=== PATIENT | female | born 1995 | race Caucasian/White ===

== ENCOUNTER 2018-07-11 14:47 | Outpatient (CLI) | payer SELFPAY ==
[2018-07-11 15:23] LABS: HCT 32.9 % (36.0-46.0); HGB 10.9 g/dL (12.0-15.5); Mean Corp. HGB Concentration 33.1 g/dL (32.0-36.0); Mean Corpuscular Hemoglobin 30.6 pg (27.0-33.0); Mean Corpuscular Volume 92.4 fL (80-95); Mean Platelet Volume 10.1 fL (8.0-11.0); Platelet Count 240 x1000/uL (130-400); RBC 3.56 m/cumm (4.00-5.20); RBC Distribution Width 14.4 % (11.7-14.6); White Blood Cell Count 10.71 k/cumm (4.4-10.8)
[2018-07-11 21:30] LABS: Glucose,1 Hr (Glucola) 116 mg/dL (80-140)
== END 2018-07-11 15:07 ==
PROVIDERS: Visit Provider Obstetrics & Gynecology
DX: Z34.92 Encounter for supervision of normal pregnancy, unspecified, second trimester (principal)
CPT/HCPCS: 36415; 82950; 85027

== ENCOUNTER 2018-09-21 15:16 | Observation (INO) | payer MEDICAID, SELFPAY ==
[2018-09-21 15:12] VITALS: BP 136/71; PULSE 79; RESP 16; TEMP 36.6; O2SAT 99
--- NOTE | 2018-09-21 15:27 | W.ED.GENAD ---
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 She denies any pelvic pain or abdominal pain. She denies any other complaints. Medical excreting exam was performed in the ER. There is no evidence of , no evidence of pain, no evidence of active bleeding vaginally or discharge. Dr. Leonardo was immediately contacted and the case was discussed with her. She recommended that we forego a complete vaginal exam in in an effort to conserve time, and protect the patient and baby to get them immediately upstairs for further OB evaluation. Think this is reasonable. The patient's vital signs are stable at this time. Patient will be immediately transferred to the OB [facility] for further obstetrics evaluation. I have extensively reviewed the treatment plan with the patient. I have addressed all patient concerns at this time. I have also discussed the plan with the admitting physician and they agree with the current assessment and plan and have agreed to assume responsibility for the patient. All parties demonstrate verbal understanding and agreement with our assessment and plan at this time. HPI General Date/Time Provider Initiated Documentation: 09/21/18 15:21. HPI Narrative: This is a 23-year-old female who is a at 38 weeks who is scheduled to have a tomorrow secondary to her being Rh- and her baby being Rh+, amongst other reasons. She has known locally to the OB department, however his is scheduled at [facility]. Patient states that last night after she was having intercourse when she went to urinate she noticed a large amount of fluid come out. Since then she has had a notable amount of suprapubic pressure that has been continuous. She denies any fever, chills, abdominal pain, or pelvic pain. She denies any other complaints at this time. She denies any other modifying factors. She states that this does not feel like her previous episodes of labor. Patient denies any other complaints at this time. 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 3.ENT: Atraumatic external nose and ears. Moist MM. Neck: Symmetric, trachea midline, No thyromegaly. 4.CVS: +S1/S2, No murmurs or gallops. Peripheral pulses 2+ and equal in all extremities. Brisk capillary refill in all extremities. 5.RESP: Unlabored respiratory effort. Clear to auscultation bilaterally. No wheezes rales or rhonchi 6.GI: Soft, Nontender/Nondistended, appropriately gravid abdomen. No abdominal tenderness. 7.MSK: Normocephalic/Atraumatic, Extremities w/o deformity or ttp No cyanosis or clubbing, Normal movement of all extremities 8.Skin: Warm, Dry. No rashes or lesions. 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 Sensation grossly intact, no focal neurologic deficits. 10.Psych: (AAO) x3. Appropriate mood and affect Course Vital Signs Temperature 36.6 C 09/21/18 15:12 Pulse 79 09/21/18 15:12 Respiratory Rate 16 09/21/18 15:12 Blood Pressure 136/71 09/21/18 15:12 Pulse Oximetry 99 09/21/18 15:12 Temperature 36.6 C 09/21/18 15:12 Temperature Source Skin 09/21/18 15:12 Pulse 79 09/21/18 15:12 Respiratory Rate 16 09/21/18 15:12 Blood Pressure 136/71 09/21/18 15:12 Pulse Oximetry 99 09/21/18 15:12 Oxygen Delivery Method Room Air 09/21/18 15:12 Oxygen Flow Rate 0 09/21/18 15:12
--- NOTE | 2018-09-21 15:31 | ED.GENADUL_ITS ---
Discharge Plan Disposition Patient Disposition: 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 She denies any pelvic pain or abdominal pain. She denies any other complaints. Medical excreting exam was performed in the ER. There is no evidence of , no evidence of pain, no evidence of active bleeding vaginally or discharge. Dr. Leonardo was immediately contacted and the case was discussed with her. She recommended that we forego a complete vaginal exam in in an effort to conserve time, and protect the patient and baby to get them immediately upstairs for further OB evaluation. Think this is reasonable. The patient's vital signs are stable at this time. Patient will be immediately transferred to the OB [facility] for further obstetrics evaluation. I have extensively reviewed the treatment plan with the patient. I have addressed all patient concerns at this time. I have also discussed the plan with the admitting physician and they agree with the current assessment and plan and have agreed to assume responsibility for the patient. All parties demonstrate verbal understanding and agreement with our assessment and plan at this time. HPI General Date/Time Provider Initiated Documentation: 09/21/18 15:21 . HPI Narrative: This is a 23-year-old female who is a at 38 weeks who is scheduled to have a tomorrow secondary to her being Rh- and her baby being Rh+, amongst other reasons. She has known locally to the OB department, however his is scheduled at [facility]. Patient states that last night after she was having intercourse when she went to urinate she noticed a large amount of fluid come out. Since then she has had a notable amount of suprapubic pressure that has been continuous. She denies any fever, chills, abdominal pain, or pelvic pain. She denies any other complaints at this time. She denies any other modifying factors. She states that this does not feel like her previous episodes of labor. Patient denies any other complaints at this time. 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 3.ENT: Atraumatic external nose and ears. Moist MM. Neck: Symmetric, trachea midline, No thyromegaly. 4.CVS: +S1/S2, No murmurs or gallops. Peripheral pulses 2+ and equal in all extremities. Brisk capillary refill in all extremities. 5.RESP: Unlabored respiratory effort. Clear to auscultation bilaterally. No wheezes rales or rhonchi 6.GI: Soft, Nontender/Nondistended, appropriately gravid abdomen. No abdominal tenderness. 7.MSK: Normocephalic/Atraumatic, Extremities w/o deformity or ttp No cyanosis or clubbing, Normal movement of all extremities 8.Skin: Warm, Dry. No rashes or lesions. 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 Sensation grossly intact, no focal neurologic deficits. 10.Psych: (AAO) x3. Appropriate mood and affect Course Vital Signs Temperature 36.6 C 09/21/18 15:12 Pulse 79 09/21/18 15:12 Respiratory Rate 16 09/21/18 15:12 Blood Pressure 136/71 09/21/18 15:12 Pulse Oximetry 99 09/21/18 15:12 Temperature 36.6 C 09/21/18 15:12 Temperature Source Skin 09/21/18 15:12 Pulse 79 09/21/18 15:12 Respiratory Rate 16 09/21/18 15:12 Blood Pressure 136/71 09/21/18 15:12 Pulse Oximetry 99 09/21/18 15:12 Oxygen Delivery Method Room Air 09/21/18 15:12 Oxygen Flow Rate 0 09/21/18 15:12
[2018-09-21 15:34] LABS: Abs Immature Grans 0.05 k/cumm (0.0-0.09); Absolute Eosinophil Count 0.05 k/cumm (0.0-0.7); Absolute Lymphocyte Count 2.48 k/cumm (1.2-3.4); Absolute Monocyte Count 0.85 k/cumm (0.11-0.7); Basophils % 0.2; Eosinophils % 0.4; HCT 34.7 % (36.0-46.0); HGB 11.5 g/dL (12.0-15.5); Immature Grans % 0.4; Lymphocytes % 18.6; Mean Corp. HGB Concentration 33.1 g/dL (32.0-36.0); Mean Corpuscular Hemoglobin 28.2 pg (27.0-33.0); Mean Platelet Volume 9.8 fL (8.0-11.0); Monocytes % 6.4; Platelet Count 307 x1000/uL (130-400); RBC 4.08 m/cumm (4.00-5.20); RBC Distribution Width 14.8 % (11.7-14.6); White Blood Cell Count 13.31 k/cumm (4.4-10.8)
[2018-09-21 15:37] LABS: Absolute Basophil Count 0.03 k/cumm (0.0-0.2); Absolute Neutrophil Count 9.85 k/cumm (1.2-6.7)
[2018-09-21 15:54] LABS: ALT 11 U/L (12-78); AST 11 U/L (15-37); Albumin 2.4 g/dL (3.4-5.0); Alkaline Phosphatase 207 U/L (46-116); Anion Gap 10.6 mmol/L (3-11); BUN 6 mg/dL (7-18); Bilirubin, Total 0.3 mg/dL (0.2-1.0); CO2 23.4 mmol/L (21.0-32.0); CREATININE 0.64 mg/dL (0.55-1.02); Calcium 8.6 mg/dL (8.5-10.1); Chloride 104 mmol/L (98-107); Glucose 74 mg/dL (70-100); Potassium 3.9 mmol/L (3.5-5.1); Sodium 138 mmol/L (136-145); Total Protein 6.7 g/dL (6.4-8.2)
== END 2018-09-21 18:03 | disposition home or self-care (01) | DRG 833 ==
LOC: ER 15:25 → OBS 15:34
PROVIDERS: Admitting Provider Obstetrics & Gynecology Gynecology; Emergency Provider Student in an Organized Health Care Education/Training Program; PCP Obstetrics & Gynecology; Visit Provider Obstetrics & Gynecology Gynecology
DX: O47.1 False labor at or after 37 completed weeks of gestation (principal); O34.211 Maternal care for low transverse scar from previous cesarean delivery; Z3A.37 37 weeks gestation of pregnancy
CPT/HCPCS: 36415; 80053; 86850; 86900; 86901; 99285; 85025; 86870; 86902; 99284; G0378

== ENCOUNTER 2019-04-30 06:54 | Emergency (ER) | payer OTHER, SELFPAY ==
[2019-04-30 06:59] VITALS: BP 104/41; PULSE 52; RESP 18; TEMP 36.7; O2SAT 99
--- NOTE | 2019-04-30 07:08 | W.ED.GENAD ---
Discharge Plan Disposition Patient Disposition: HOME Condition: Good Discharge Details Chief Complaint: Nk/Back Pain Clinical Impression: Back strain Primary Care Provider: Adela Kerr ED Provider: Jose Beatty Home Meds and New Rx's Prescriptions: New cyclobenzaprine 10 mg tablet 10 mg PO TID Qty: 14 RF: 0 lidocaine [Lidoderm] 1 PATCH patch 1 patch Topical Q24H Qty: 4 RF: 0 Discharge Instructions Instructions: Low Back Strain (ED), Lower Back Exercises (ED) Additional Instructions: At this time you show signs and symptoms concerning for low back strain. Please do not lift anything heavier than 5 to 10 pounds. Please take 1000 mg of Tylenol every 6 hours and 800 mg of ibuprofen every 6 hours. Please use a heating pad as often as possible. Please take the Flexeril only as needed, and do not take them when you are driving, operating heavy machinery, or using firearms. Please use the Lidoderm patches as directed. If you notice any worsening of your symptoms, or any new symptoms such as vomiting, diarrhea, fever, chills, shortness of breath, chest pain, numbness, weakness, bowel or bladder incontinence, tingling in your groin, or fainting , please return immediately to the emergency department for reevaluation. Please follow up with your primary care provider as soon as possible for reassessment and reevaluation. As always, it was a pleasure participating in your medical care today. Stand Alone Forms: Work Release Referrals: Adela Kerr, TERMITE RENEWAL INSPECTOR [Primary Care Provider] - Discharge Data Discharge Date/Time-TO BE ENTERED AT DEPARTURE: 04/30/19 07:40 Medical Decision Making This is a pleasant 24-year-old female who presents today for evaluation of low back pain. She works in [employer] and turned slightly quickly causing some mild pain in her left lower back. Physical exam demonstrates notable reproducible left-sided paraspinal pain over L4-L5, no midline tenderness. No weakness, neurologic deficits, saddle anesthesia, or signs or symptoms concerning for cauda equina syndrome. With no recent falls or trauma and no midline tenderness C at this time no clinical emergent indication for imaging. This time we will recommend Lidoderm patch, NSAIDs, Flexeril and heating pad as needed. Patient will be given a work note. We discussed red flags for which to return. I have extensively reviewed the treatment plan and discharge instructions with the patient. I have addressed all patient concerns at this time. The patient was made aware of what symptoms to monitor for that would warrant a return to the emergency department. Discussed the plan with the patient, they demonstrate verbal understanding and agreement with our assessment and plan at this time. HPI General Date/Time Provider Initiated Documentation: 04/30/19 07:01. HPI Narrative: This is a pleasant 24-year-old female with no significant past medical history who presents today for evaluation of left lower back pain. 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 She denies any falls or trauma. Pain is only located there. She denies any numbness or tingling in her groin, or into her legs. She denies any weakness. She denies any bowel or bladder incontinence. She has no other complaints at this time. No other modifying factors. She denies any previous injury to the back. Related Data Home Medications Medication Instructions Recorded Confirmed cyclobenzaprine 10 mg PO TID #14 tab 04/30/19 lidocaine [Lidoderm] 1 patch TOPICAL Q24H #4 patch 04/30/19 Previous Rx's Medication Instructions Recorded cyclobenzaprine 10 mg PO TID #14 tab 04/30/19 lidocaine [Lidoderm] 1 patch TOPICAL Q24H #4 patch 04/30/19 Allergies Allergy/AdvReac Type Severity Reaction Status Date / Time No Known Allergies Allergy Unverified 04/30/19 07:06 General Stated Complaint: Nk/Back Pain CAMILLA: 3 Review of Systems Review of Systems All systems reviewed & are unremarkable except as noted in HPI and below [facility] Medical History (Updated 02/27/19 @ 11:02 by Inez SwipeGood) Abnormal antibody titer (Acute 04/05/18) Bipolar affect, depressed (Chronic) History of kidney stones (Acute) History of sterilization procedure (Resolved) Surgical History (Updated 02/27/19 @ 11:02 by Inez TastyKhanaeant) History of delivery (Inactive) History of cholecystectomy (Chronic) History of tonsillectomy (Chronic) Social History (Updated 02/27/19 @ 11:02 by Inez TastyKhanaashvinHearts For Art) Smoking/Tobacco Use Status: Current, status unknown Tobacco Type: cigarettes Alcohol Intake: never Drug use: Occasionally Substance use type: marijuana Do you feel safe at home: Yes Do you feel safe in your relationship?: Yes Female Reproductive History Menstrual control method: none History History 4 Para Hx # Term Pregnancies 2 Multiple births Hx # Pregnancies Ectopic pregnancies AB induced Hx Number of Living Children AB spontaneous Exam Narrative Exam Narrative: 1.Const: Well-nourished, Well-developed, appearing stated age 2.Eyes: PERRL, no conjunctival injection, and symmetrical lids. 3.ENT: Atraumatic external nose and ears. Moist MM. Neck: Symmetric, trachea midline, No thyromegaly. 4.CVS: +S1/S2, No murmurs or gallops. Peripheral pulses 2+ and equal in all extremities. Brisk capillary refill in all extremities. 5.RESP: Unlabored respiratory effort. Clear to auscultation bilaterally. No wheezes rales or rhonchi 6.GI: Soft, Nontender/Nondistended, No hepatosplenomegaly. No guarding or rebound. 7.MSK: Normocephalic/Atraumatic, Extremities w/o deformity or ttp No cyanosis or clubbing, Normal movement of all extremities no midline tenderness to palpation over the CTLS spine. Mild left paraspinal pain over L4 and L5. Normal ROM in flexion, extension, side bend, and rotation. Patient has +5 out of 5 strength in the lower extremities in dorsiflexion and plantarflexion, knee flexion and extension, hip flexion and extension. There is +2 over 2 dorsalis pedis pulses bilaterally. There is normal sensation to the skin with light touch at the foot, knee, and hip. Normal saddle sensation. Good sensation over the deep sural nerve area bilaterally. Rectal exam demonstrates good rectal tone and perirectal sensation. Reflexes are +2 over 4 in the patellar reflex bilaterally. +5 out of 5 strength in the medial, ulnar, radial nerve distribution bilaterally in the hands as well as intact light touch sensation to these dermatomes on the hands 8.Skin: Warm, Dry. No rashes or lesions. 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 Sensation grossly intact, no focal neurologic deficits. 10.Psych: (AAO) x3. Appropriate mood and affect Course Vital Signs Temperature 36.7 C 04/30/19 06:59 Pulse 52 L 04/30/19 06:59 Respiratory Rate 18 04/30/19 06:59 Blood Pressure 104/41 L 04/30/19 06:59 Pulse Oximetry 99 04/30/19 06:59 Temperature 36.7 C 04/30/19 06:59 Temperature Source Temporal Artery Scan 04/30/19 06:59 Pulse 52 L 04/30/19 06:59 Respiratory Rate 18 04/30/19 06:59 Blood Pressure 104/41 L 04/30/19 06:59 Blood Pressure Position Sitting 04/30/19 06:59 Pulse Oximetry 99 04/30/19 06:59 Oxygen Delivery Method Room Air 04/30/19 06:59 Oxygen Flow Rate 0 04/30/19 06:59
[2019-04-30 07:13] LABS: Bilirubin Negative (Negative); Blood Negative (Negative); Clarity Clear (Clear); Glucose Negative (Negative); Ketones Negative (Negative); Leukocyte Esterase Negative (Negative); Nitrite Negative (Negative); Specific Gravity 1.025 (1.005-1.025); Urobilinogen 0.2 EU/dL (Up TO 0.2)
[2019-04-30] MEDS: Dexamethasone 4 MG TAB 12 MG PO (07:25)
[2019-04-30] MEDS: Lidocaine 5% Patch 1 PATCH TP (07:27)
== END 2019-04-30 07:40 | disposition home or self-care (01) ==
LOC: ER 07:33
PROVIDERS: Emergency Provider Student in an Organized Health Care Education/Training Program; PCP Nurse Practitioner Adult Health
DX: S39.012A Strain of muscle, fascia and tendon of lower back, initial encounter (principal); X50.3XXA Overexertion from repetitive movements, initial encounter
CPT/HCPCS: 81025; 99283; 81003; J8540

== ENCOUNTER 2019-06-08 10:33 | Outpatient (REF) | payer MEDICAID, SELFPAY ==
[2019-06-08 13:11] LABS: HCT 41.4 % (36.0-46.0); HGB 13.9 g/dL (12.0-15.5); Mean Corp. HGB Concentration 33.6 g/dL (32.0-36.0); Mean Corpuscular Hemoglobin 30.5 pg (27.0-33.0); Mean Platelet Volume 10.7 fL (8.0-11.0); Platelet Count 279 x1000/uL (130-400); RBC 4.55 m/cumm (4.00-5.20); RBC Distribution Width 12.9 % (11.7-14.6); White Blood Cell Count 9.13 k/cumm (4.4-10.8)
[2019-06-08 13:26] LABS: ALT 21 U/L (14-59); AST 11 U/L (15-37); Albumin 3.6 g/dL (3.4-5.0); Alkaline Phosphatase 92 U/L (46-116); Anion Gap 9.3 mmol/L (3-11); BUN 15 mg/dL (7-18); Bilirubin, Total 0.3 mg/dL (0.2-1.0); CO2 23.7 mmol/L (21.0-32.0); CREATININE 0.73 mg/dL (0.55-1.02); Calcium 8.6 mg/dL (8.5-10.1); Chloride 106 mmol/L (98-107); Glucose 82 mg/dL (70-100); Potassium 4.2 mmol/L (3.5-5.1); Sodium 139 mmol/L (136-145); TSH (W/Ref FT4) 1.99 uIU/mL (0.36-3.74)
[2019-06-11 10:40] LABS: Hepatitis C Ab w Rflx HCV PCR Negative (NEGAT)
[2019-06-11 10:42] LABS: HIV-1/2 Ag & Ab Screen Negative (NEGAT)
== END 2019-06-08 10:53 ==
LOC: LBN 10:33
PROVIDERS: PCP Nurse Practitioner Adult Health; Visit Provider Nurse Practitioner Adult Health
DX: F31.30 Bipolar disorder, current episode depressed, mild or moderate severity, unspecified (principal); F41.9 Anxiety disorder, unspecified; R53.83 Other fatigue; Z11.4 Encounter for screening for human immunodeficiency virus [HIV]; Z11.59 Encounter for screening for other viral diseases; Z91.89 Other specified personal risk factors, not elsewhere classified
CPT/HCPCS: 80053; 85027; 86803; 87389; 84443

== ENCOUNTER 2019-07-23 09:13 | Emergency (ER) | payer MEDICAID, SELFPAY ==
[2019-07-23 09:24] VITALS: BP 110/82; PULSE 103; RESP 16; TEMP 36.6; O2SAT 99
--- NOTE | 2019-07-23 09:35 | ED.GENADUL_ITS ---
Discharge Plan Disposition Patient Disposition: HOME Condition: Stable Discharge Details Chief Complaint: Sorethroat Clinical Impression: Pharyngitis Primary Care Provider: Adela Kerr ED Provider: Yoli Zepeda Home Meds and New Rx's Prescriptions: No Action No Known Home Meds RF: 0 Discharge Instructions Instructions: Pharyngitis (ED) Additional Instructions: Please return immediately to the emergency room if you develop any new or worsening symptoms or if you become otherwise concerned. It is extremely important that you call as soon as possible to make an appointment to be seen in follow-up for this visit by your primary care doctor. Referrals: Adela Kerr, ART CONSERVATOR [Primary Care Provider] - Discharge Data Discharge Date/Time-TO BE ENTERED AT DEPARTURE: 07/23/19 10:12 Medical Decision Making Luisa roblesies a 24-year-old woman with a history of bipolar disorder who presented to the emergency department with sore throat since yesterday. On exam patient is well and nontoxic appearing. Posterior pharynx is erythematous without other abnormal interval finding. Exam/history is not consistent with retropharyngeal abscess/peritonsillar abscess, Amrcel's angina, meningitis, sepsis, impending airway compromise, acute emergent life-threatening intra- abdominal process, other acute emergent life-threatening process. Concern for viral versus bacterial pharyngitis. Rapid strep positive per nursing. Patient elects for IM antibiotics over p.o. Patient taking p.o. in the emergency department without issue. I had a lengthy discussion with the patient regarding return to emergency department precautions, home care, and importance of outpatient follow-up with her PCP. Patient was placed on care management list for outpatient follow PCP for her chronic abdominal pain and pharyngitis follow- up. Patient verbalized understanding of the plan and was amenable. All questions were answered. Patient was discharged home with clear plan for outpatient follow-up. Medical Records Medical records reviewed: Yes I reviewed the patient's medical records. Lab Data Lab results reviewed: Yes I reviewed the patient's lab results. HPI General Mode of arrival: ambulatory . Date/Time Provider Initiated Documentation: 07/23/19 09:34 . Limitations to Documentation: no limitations . Information obtained by: patient, RN notes reviewed and old records reviewed . HPI Narrative: Luisa Camp is a 24-year-old woman with a history of bipolar disorder presenting to the emergency department with sore throat. Patient reports that yesterday she developed a sore throat. She reports that she has had some mild cough and subjective fever last night. Patient reports that she is able to swallow but does have pain with swallowing. She has been eating and drinking somewhat less because of this. Upon review of systems, patient reports that she has had chronic intermittent lower abdominal pain for 4 or 5 years that has not been evaluated, severity, location, duration without recent change, chronic pain is at baseline and does not currently occurring. She denies any other pain, vomiting, diarrhea, shortness of breath, numbness, weakness, rash. Patient reports that she feels otherwise well. No other recent illness. No recent travel. Related Data Home Medications Medication Instructions Recorded Confirmed Unknown [No Known Home Meds] 07/23/19 07/23/19 Allergies Allergy/AdvReac Type Severity Reaction Status Date / Time No Known Allergies Allergy Verified 07/23/19 09:27 General Stated Complaint: Sorethroat CAMILLA: 4 Review of Systems Narrative: Constitutional: Reports subjective fevers Eyes: denies eye pain ENT: denies facial pain, dental pain, reports sore throat Cardiovascular: denies chest pain Respiratory: denies SOB, reports mild cough GI: denies vomiting, diarrhea, reports chronic abdominal pain as per HPI : denies flank pain MSK: denies back pain, neck pain, arthralgias, myalgias Skin: denies rash Neuro: denies headaches, numbness, weakness [facility] Medical History Abnormal antibody titer (Inactive 04/05/18) 03/2018 anti littleC antibody titer 64. Pt has serial MCA dopplers at [facility] [id number]. Is transfering care to [facility] for RC/S and BTL. Bipolar affect, depressed (Chronic) exacerbation PP. Referred to Darwin Coats LCSW for PP evaluation. History of intravenous drug abuse (Acute) History of kidney stones (Acute) History of methamphetamine abuse (Acute) Low back pain (Inactive) Nicotine dependence with current use (Chronic) Obesity (Chronic) Surgical History (Updated 06/07/19 @ 16:07 by Adela Kerr NP) History of delivery (Inactive) x3. Most recent at [facility] 10/2018. BTL at that time. History of cholecystectomy (Chronic) History of tonsillectomy (Chronic) History of tubal ligation (Chronic) Social History Smoking/Tobacco Use Status: Current every day Tobacco Type: cigarettes Smoking packs per day: 10 Smoking cigarettes per day: 200.0 Quit status: not considering quitting Alcohol Intake: never Drug use: Occasionally Substance use type: marijuana Details: has quit THC for job. Household members: other Details: aunt and uncle, fiance and 2 children Number of Children: 2 Education Level: other Details: did not graduate no GED current occupation: [employer] What type of physical activity do you participate in: other Details: Physical Therapy teice weekly Seatbelt use: always Do you feel safe at home: Yes Do you feel safe in your relationship?: Yes Female Reproductive History Menstrual control method: none History History 4 Para Hx # Term Pregnancies 2 Multiple births Hx # Pregnancies Ectopic pregnancies AB induced Hx Number of Living Children AB spontaneous Exam Narrative Exam Narrative: Constitutional: well and [id number], pleasant, conv ersing normally HENT: head atraumatic/normocephalic/normal inspection, mucous membranes moist, posterior pharynx erythematous, uvula midline, status post tonsillectomy, no exudates, no intraoral lesion or intraoral edema, normal voice, no drooling or pooling of secretions Eyes: conjunctiva normal, sclera normal, pupils 3mm b/l Neck: no stridor, full painless ROM, trachea midline, positive anterior cervical lymphadenopathy bilaterally Chest: normal inspection Resp: normal work of breathing, LCTAB Cardio: normal rate, normal rhythm, no murmur appreciated Skin: warm, dry, normal color, no rash Neuro: alert, not altered, grossly non-focal, normal tone Ext: no edema Psych: normal mood, normal affect, normal behavior Course Vital Signs Vital signs: Vital Signs Temperature 36.6 C 07/23/19 09:24 Pulse 103 H 07/23/19 09:24 Respiratory Rate 16 07/23/19 09:24 Blood Pressure 110/82 07/23/19 09:24 Pulse Oximetry 99 07/23/19 09:24 Temperature 36.6 C 07/23/19 09:24 Temperature Source Skin 07/23/19 09:24 Pulse 103 H 07/23/19 09:24 Respiratory Rate 16 07/23/19 09:24 Respiratory Effort Non-Labored 07/23/19 09:24 Blood Pressure 110/82 07/23/19 09:24 Blood Pressure Position Sitting 07/23/19 09:24 Pulse Oximetry 99 07/23/19 09:24 Oxygen Delivery Method Room Air 07/23/19 09:24 Oxygen Flow Rate 0 07/23/19 09:24 Pain Level 8 07/23/19 09:24 Lab/Test Results Lab/Test Results: POC Strep Test-JUAN CARLOS(Rapid) Start: 07/23/19 09:30 Freq: .Rapid Strep Test Status: Active Protocol: Document 07/23/19 09:30 MMQ (Rec: 07/23/19 09:30 MMQ [id number]) Strep test-JUAN CARLOS(Rapid)-POC POC-Strep test-JUAN CARLOS (Rapid) Positive POC-Strep test-JUAN CARLOS (Rapid) Positive
== END 2019-07-23 10:12 | disposition home or self-care (01) ==
PROVIDERS: Emergency Provider Student in an Organized Health Care Education/Training Program; PCP Nurse Practitioner Adult Health
DX: J02.0 Streptococcal pharyngitis (principal); F17.210 Nicotine dependence, cigarettes, uncomplicated
CPT/HCPCS: 87880; 96372; 99284; J0561

== ENCOUNTER 2020-06-04 02:47 | Outpatient (CLI) | payer MEDICAID, SELFPAY ==
[2020-06-04 12:42] LABS: Kit/Specimen SENT
[2020-06-04 12:52] LABS: Abs Immature Grans 0.04 10^3/uL (0.0-0.06); Absolute Basophil Count 0.02 10^3/uL (0.0-0.2); Absolute Eosinophil Count 0.12 10^3/uL (0.0-0.7); Absolute Lymphocyte Count 3.02 10^3/uL (1.2-3.4); Absolute Monocyte Count 0.71 10^3/uL (0.1-0.8); Absolute Neutrophil Count 5.66 10^3/uL (1.2-6.7); Basophils % 0.2; Eosinophils % 1.3; HCT 38.3 % (36.0-46.0); Immature Grans % 0.4; Lymphocytes % 31.6; MCHC 33.9 % (32.0-36.0); MCV 88.5 fL (80-95); MPV 10.1 fL (8.0-11.0); Monocytes % 7.4; Neutrophils % 59.1; Nucleated RBC 0 %; Platelet Count 288 10^3/uL (130-400); RBC 4.33 10^6/uL (3.93-5.22); RDW 13.6 % (11.7-14.6); RDW-SD 44.1 fL; WBC 9.57 10^3/uL (4.4-10.8)
[2020-06-04 13:00] LABS: Glucose,1 Hr (Glucola) 67 mg/dL (80-140)
[2020-06-04 13:27] LABS: TSH (W/Ref FT4) 1.58 uIU/mL (0.36-3.74)
[2020-06-04 14:58] LABS: *AMPHETAMINES SCREEN URINE Negative (Negative); *BARBITURATES SCREEN URINE Negative (Negative); *BENZODIAZEPINES SCREEN URINE Negative (Negative); Cannabinoids THC POSITIVE (Negative); Cocaine Screen,Urine Negative (Negative); METHADONE URINE SCREEN Negative (Negative); OPIATES URINE SCREEN Negative (Negative)
[2020-06-04 15:00] LABS: Tricyclic Antidepressants Negative (Negative)
[2020-06-05 11:29] LABS: Hepatitis B Surface Ag Negative (Negative)
[2020-06-05 12:05] LABS: HIV-1/2 Ag & Ab Screen Negative (Negative)
[2020-06-05 12:16] LABS: Hepatitis C Ab w Rflx HCV PCR Negative (Negative)
[2020-06-05 17:17] LABS: Rubella IgG Ab (UVM) Positive (See Note); Varicella IgG Antibody Positive (See Note)
[2020-06-06 14:11] LABS: Syphilis Total Ab w/Reflex Nonreactive (Nonreactive)
[2020-06-11 11:20] LABS: Buprenorphine Negative; Norbuprenorphine Negative
[2020-06-12 02:07] LABS: Result Summary NEGATIVE; Specimen WB Whole Blood
== END 2020-06-04 03:07 ==
PROVIDERS: PCP Nurse Practitioner Adult Health; Visit Provider Advanced Practice Midwife
DX: Z34.91 Encounter for supervision of normal pregnancy, unspecified, first trimester (principal); Z36.89 Encounter for other specified antenatal screening; Z11.4 Encounter for screening for human immunodeficiency virus [HIV]; Z11.59 Encounter for screening for other viral diseases; Z01.84 Encounter for antibody response examination
CPT/HCPCS: 36415; 80307; 82950; 86787; 86803; 86850; 86900; 86901; 87340; 87389; 81220; 84443; 85025; 86762; 86780; 86870; 87086

== ENCOUNTER 2020-07-04 15:59 | Outpatient (REF) | payer MEDICAID, SELFPAY ==
[2020-07-07 02:30] LABS: Patient Race White; SARS-CoV-2 RNA Undetected (Undetected); SARS-CoV-2 Specimen Source Nasal
== END 2020-07-04 16:19 ==
LOC: NCHCN 15:59
PROVIDERS: PCP Nurse Practitioner Adult Health; Visit Provider Nurse Practitioner Family
DX: Z11.59 Encounter for screening for other viral diseases (principal)
CPT/HCPCS: U0003

== ENCOUNTER 2020-08-08 16:56 | Outpatient (CLI) | payer MEDICAID, SELFPAY ==
[2020-08-08 17:30] VITALS: BP 106/60; PULSE 77; TEMP 36.9
[2020-08-08 17:44] VITALS: BP 106/60; PULSE 77
[2020-08-08 18:08] VITALS: BP 106/60; PULSE 77; TEMP 36.6
--- NOTE | 2020-08-19 17:52 | W.OBNST ---
Date of service: 08/19/20 Time of Service: 17:53 NST Evaluation Reason for NST Reasons for Nonstress Test: DECREASED MOVEMENT Gestational Age Gestational Age in Weeks and Days: 19 Weeks and 4Days Test and Monitor Explained Test/Monitor Explained: Test Explained, Monitor Explained and Patient Verbalized Understanding Vital Signs Blood Pressure: 106/60 Pulse: 77 Temperature: 97.9 F NST Information Date on Monitor: 08/08/20 Time on Monitor: 17:30 Date off Monitor: 08/08/20 Time off Monitor: 17:45 Total Time on Monitor: 15 NST Interventions: Other NST Evaluation Patient States Movement: Present FHR Baseline: 140 Variability: Moderate 6-25 bpm Accelerations: 10x10 Decelerations: None Note NST Note Note: Pt given reassurance that surveillance was normal. NST Reviewed and Verified by: Ninoska Barreto
[2020-08-19 17:53] VITALS: BP 106/60; PULSE 77; TEMP 36.6
--- NOTE | 2020-10-09 10:51 | PDOC.NST_ITS ---
Date of service: 10/09/20 Time of Service: 10:51 NST Evaluation Reason for NST Reasons for Nonstress Test: DECREASED MOVEMENT Gestational Age Gestational Age in Weeks and Days: 19 Weeks and 4Days Test and Monitor Explained Test/Monitor Explained: Test Explained, Monitor Explained and Patient Verbalized Understanding Vital Signs Blood Pressure: 106/60 Pulse: 77 Temperature: 97.9 F NST Information Date on Monitor: 08/08/20 Time on Monitor: 17:30 Date off Monitor: 08/08/20 Time off Monitor: 17:45 Total Time on Monitor: 15 NST Interventions: Other NST Evaluation Patient States Movement: Present FHR Baseline: 140 Variability: Moderate 6-25 bpm Accelerations: 10x10 Decelerations: None Note NST Note Note: After arrival pt reported that she now felt the baby move. Reassurance given. [facility] NST Reviewed and Verified by: Nionska Barreto
[2020-10-09 10:52] VITALS: BP 106/60; PULSE 77; TEMP 36.6
== END 2020-08-08 18:05 | disposition home or self-care (01) ==
LOC: BCD 16:57 → OBS 17:21
PROVIDERS: PCP Nurse Practitioner Adult Health; Visit Provider Obstetrics & Gynecology Gynecology
DX: O36.8120 Decreased fetal movements, second trimester, not applicable or unspecified (principal); Z3A.19 19 weeks gestation of pregnancy
CPT/HCPCS: 59025

== ENCOUNTER 2020-08-12 00:54 | Outpatient (CLI) | payer MEDICAID, SELFPAY ==
--- NOTE | 2020-08-12 08:15 | DI.US_ITS ---
EXAM: US OB 2-3 TRIMESTER CLINICAL HISTORY: ,Z34.90 TECHNIQUE: Ultrasound performed using standard protocol. COMPARISON: US from 03/07/2018 FINDINGS: Ob ultrasound was performed utilizing 2nd trimester protocol. biometry is consistent with a ge stational age of 21 weeks 6 days and an EDC December 17, 2020. Placenta is anterior with no placenta previa. There is a normal quantity of amniotic fluid. anomaly screen is within normal limits as per the attached checklist. heart rate is 150 BPM. IMPRESSION: DATA REPOSITORY:
== END 2020-08-12 01:14 ==
PROVIDERS: PCP Nurse Practitioner Adult Health; Visit Provider Obstetrics & Gynecology
DX: Z34.92 Encounter for supervision of normal pregnancy, unspecified, second trimester (principal)
CPT/HCPCS: 76805

== ENCOUNTER 2020-11-18 13:20 | Emergency (ER) | payer MEDICAID, SELFPAY ==
[2020-11-18 13:32] VITALS: BP 104/89; PULSE 79; RESP 16; TEMP 36.5; O2SAT 99
--- NOTE | 2020-11-18 13:49 | ED.GENADUL_ITS ---
Discharge Plan Disposition Patient Disposition: AGAINST MEDICAL ADVICE Discharge Details Clinical Impression: Low back pain during Primary Care Provider: Adela Kerr ED Provider: Bryant Zepeda Home Meds and New Rx's Prescriptions: Continued prenat.vits,charley,ypy-pexg-ubink Tablet 1 tab PO DAILY Qty: 90 RF: 4 (DME) compr.stocking,knee,long,x-lrg Misc See Rx Instructions .ROUTE .MEDSUPPLY Qty: 2 RF: 1 fluoxetine 20 mg capsule 20 mg PO DAILY Qty: 30 RF: 5 Discharge Instructions Additional Instructions: Please follow-up with your clinical manager home care. Call today. Your urinalysis is pending at this time. It was recommended that you stay until result is complete. You are leaving AGAINST MEDICAL ADVICE. We will contact you if your urinalysis is concerning. Return to the ER at any time for further work-up and treatment as recommended. Referrals: Adela Kerr, INTERACTIVE ACCOUNT MANAGER [Primary Care Provider] - Medical Decision Making 25-year-old G4, P3 at 34 weeks here with low back pain and of lower abdominal discomfort waxing and waning and occurring approximately every hour or so. No vaginal bleeding or discharge. Consider labor pain. heart rate performed by nursing and within normal limits. OB on-call, Dr. Barreto was consulted, discussed presentation and my evaluation with her, she evaluated the patient and performed a physical exam. Dr. Barreto notes the patient is not in labor recommends discharge with outpatient follow- up. Symptoms are attributed to recently patient did some lifting and overdid it. Initial labs reviewed and not diagnostic. Urinalysis was pending and patient requested to leave prior to result. I had a discussion with the patient about my diagnostic/treatment plan. Patient declines plan and wishes to leave against medical advise. I reiterated my concerns to the patient and explained the risks of leaving prior to completion of workup and treatment. I specifically emphasized the possibility of life- threatening or lifestyle modifying disease or disease that could impact her baby that would not be appropriately treated if they leave. Patient verbalized understanding of my concerns and the potential for life threatening or lifestyle modifying disease. She has capacity to make informed decision. I again explained my concerns and urged the patient to stay for treatment as outlined. Patient continued to refuse. I then discussed potential less ideal alternatives to diagnostic/treatment plan as outlines and she refused. I recommended that the patient follow-up with her clinical manager home care KATARINA or return to the Emergency Department at any time for further treatment. Urinalysis has subsequently resulted that is not concerning for UTI. HPI General Mode of arrival: ambulatory . Date/Time Provider Initiated Documentation: 11/18/20 13:34 . Limitations to Documentation: no limitations . Information obtained by: patient . HPI Narrative: 25-year-old G4, P3 at 34 weeks, here with chief complaint of back pain. Patient notes pressure in her low back bilaterally as well as her pelvis occurring roughly every hour since 1030 this morning. Symptoms are moderate. She is concerned about labor. No modifiers. Related Data Home Medications Medication Instructions Recorded Confirmed prenat.vits,charley,lsg-fwdc-imbif 1 tab PO DAILY #90 tab 06/04/20 08/12/20 compr.stocking,knee,long,x-lrg #2 ea 08/01/20 08/12/20 fluoxetine 20 mg capsule 20 mg PO DAILY #30 cap 08/27/20 Previous Rx's Medication Instructions Recorded prenat.vits,charley,xro-vann-rmnzo 1 tab PO DAILY #90 tab 06/04/20 compr.stocking,knee,long,x-lrg #2 ea 08/01/20 fluoxetine 20 mg capsule 20 mg PO DAILY #30 cap 08/27/20 Allergies Allergy/AdvReac Type Severity Reaction Status Date / Time No Known Allergies Allergy Verified 07/10/20 14:36 General Stated Complaint: BARISTA CAMILLA: 2 Review of Systems All systems reviewed & are unremarkable except as noted in HPI and below Constitutional Constitutional: Denies fever(s) Genitourinary Genitourinary: Denies abnormal vaginal bleeding, Denies hematuria, Denies dysuria and Denies vaginal discharge [facility] Medical History (Updated 11/18/20 @ 15:12 by Bryant Zepeda MD) Abnormal antibody titer (04/05/18) 03/2018 anti littleC antibody titer 64. Pt has serial MCA dopplers [place] [facility] [id number]. Is transfering care [place] [facility] [place] and BTL. Bipolar affect, depressed History of intravenous drug abuse History of kidney stones History of methamphetamine abuse Low back pain Marijuana smoker Nicotine dependence with current use Obesity Surgical History (Updated 05/01/20 @ 16:33 by Mau Reyna MD) History of delivery x3. Most recent [place] [facility] [place] BTL at that time. History of cholecystectomy History of tonsillectomy History of tubal ligation Family History (Updated 06/04/20 @ 10:21 by Rosangela Ojeda CNM) Mother Substance abuse suboxone Mental health disorder Father Substance abuse methamphetamine Sister Graves' disease Social History Smoking/Tobacco Use Status: Current every day Tobacco Type: cigarettes Smoking packs per day: 10 Smoking cigarettes per day: 200.0 Tobacco: How many years used: 10 Quit status: not considering quitting Smoking risk assessment performed?: Yes Alcohol Intake: never Drug use: Occasionally Substance use type: marijuana Housing: apartment Number of Children: 2 Education Level: other Details: did not graduate no GED current occupation: unemployed What is your relationship status?: living with partner Panel score (0-1 are the most socially isolated patients): 1 What type of physical activity do you participate in: other Details: Physical Therapy teice weekly Seatbelt use: always Do you feel safe at home: Yes Do you feel safe in your relationship?: Yes Female Reproductive History Menstrual control method: none History History 4 Para 3 Hx # Term Pregnancies 3 Multiple births Hx # Pregnancies Ectopic pregnancies AB induced Hx Number of Living Children AB spontaneous Past Pregnancies Del. Date GA/Weeks # Outcome Route Wgt Sex Labor Lgth Anesthes ia Location [facility] 06/16/13 41 No Successful 3685.438 g Male [place] 08/02/17 39 Successful 3316.894 g Male [place] 09/26/18 39 No Successful 3373.593 g Female [facility] Delivery Date: 06/16/13 Emergency , bradycardia Rosangela Ojeda Delivery Date: 08/02/17 No notes to display Delivery Date: 09/26/18 Anti-c, blood transfusion Rosangela Ojeda Exam Const General: cooperative and no acute distress HENMT Mouth: moist mucous membranes Eyes Conjunctivae: normal conjunctivae Sclera: normal sclerae Neck Neck: trachea midline and supple Resp Auscultation: clear to auscultation bilaterally, no rales, no rhonchi and no wheezes Cardio Rate: regular rate and not tachycardic Rhythm: regular rhythm GI Inspection: distended Palpation: soft, not firm, no guarding, no masses, not rigid and nontender Auscultation: normal bowel sounds Skin General skin exam: no rashes or lesions noted Neuro General: patient alert and patient awake Extrem General: no edema Psych Appearance: grossly normal Mental Status: mental status grossly normal Course Vital Signs Vital signs: Vital Signs Temperature 36.5 C 11/18/20 13:32 Pulse 79 11/18/20 13:32 Respiratory Rate 16 11/18/20 13:32 Blood Pressure 104/89 11/18/20 13:32 Pulse Oximetry 99 11/18/20 13:32 Temperature 36.5 C 11/18/20 13:32 Temperature Source Skin 11/18/20 13:32 Pulse 79 11/18/20 13:32 Respiratory Rate 16 11/18/20 13:32 Blood Pressure 104/89 11/18/20 13:32 Blood Pressure Position Sitting 11/18/20 13:32 Pulse Oximetry 99 11/18/20 13:32 Oxygen Delivery Method Room Air 11/18/20 13:32 Oxygen Flow Rate 0 11/18/20 13:32 Pain Level 5 11/18/20 13:32
[2020-11-18 14:36] LABS: ALT 17 U/L (14-59); AST 9 U/L (15-37); Alkaline Phosphatase 122 U/L (46-116); Anion Gap 7.2 mmol/L (3-11); BUN 5 mg/dL (7-18); Bilirubin, Total 0.2 mg/dL (0.2-1.0); CO2 26.8 mmol/L (21.0-32.0); CREATININE 0.6 mg/dL (0.55-1.02); Chloride 104 mmol/L (98-107); Glucose 92 mg/dL (74-106); Potassium 3.4 mmol/L (3.5-5.1); Sodium 138 mmol/L (136-145); Total Protein 5.5 g/dL (6.4-8.2)
[2020-11-18 15:25] LABS: Bilirubin Negative (Negative); Blood Negative (Negative); Clarity Clear (Clear); Glucose Negative (Negative); Ketones Negative (Negative); Leukocyte Esterase Negative (Negative); Nitrite Negative (Negative); Urobilinogen 0.2 EU/dL (Up TO 0.2); pH 8.5 (5-8)
== END 2020-11-18 15:24 | disposition left against medical advice (07) ==
PROVIDERS: Emergency Provider Student in an Organized Health Care Education/Training Program; PCP Nurse Practitioner Adult Health
DX: O26.893 Other specified pregnancy related conditions, third trimester (principal); O99.333 Smoking (tobacco) complicating pregnancy, third trimester; O99.323 Drug use complicating pregnancy, third trimester; Z3A.34 34 weeks gestation of pregnancy; F17.210 Nicotine dependence, cigarettes, uncomplicated; F12.10 Cannabis abuse, uncomplicated; Z53.29 Procedure and treatment not carried out because of patient's decision for other reasons
CPT/HCPCS: 36415; 80053; 86850; 86900; 86901; 99283; 81003; 86870

== ENCOUNTER 2020-11-22 10:40 | Observation (INO) | payer MEDICAID, SELFPAY ==
[2020-11-22 11:20] VITALS: BP 121/66; PULSE 87; RESP 20; TEMP 36.6
[2020-11-22 11:58] LABS: ROM Plus Negative
--- NOTE | 2020-11-22 12:15 | W.OBNST ---
Date of service: 11/22/20 Time of Service: 12:15 NST Evaluation Reason for NST Reasons for Nonstress Test: LABOR Gestational Age Gestational Age in Weeks and Days: 34 Weeks and 5Days Test and Monitor Explained Test/Monitor Explained: Test Explained, Monitor Explained and Patient Verbalized Understanding NST Information Date on Monitor: 11/22/20 Time on Monitor: 11:15 Date off Monitor: 11/22/20 Time off Monitor: 12:16 Total Time on Monitor: 61 NST Interventions: PO Hydration NST Evaluation Patient States Movement: Present FHR Baseline: 135 Variability: Moderate 6-25 bpm Accelerations: 15x15 Decelerations: None NST Results: Reactive Note NST Note Note: SVE to check cvx: ft/thick postperior, vtx -4, ROM test negative NST Reviewed and Verified by: Purnima An
== END 2020-11-22 12:07 | disposition home or self-care (01) ==
PROVIDERS: Admitting Provider Obstetrics & Gynecology Gynecology; PCP Nurse Practitioner Adult Health; Visit Provider Obstetrics & Gynecology Gynecology
DX: O47.03 False labor before 37 completed weeks of gestation, third trimester (principal); Z3A.34 34 weeks gestation of pregnancy
CPT/HCPCS: 59025; 84112; G0378

== ENCOUNTER 2020-11-26 10:12 | Outpatient (CLI) | payer MEDICAID, SELFPAY ==
[2020-11-26] MEDS: Betamet Acet/Betamet Na Ph Inj. 30 MG/5 ML 12 MG IM (10:26)
--- NOTE | 2020-12-03 14:06 | W.PM.PROGNOT ---
Date of Service Date of service: 11/26/20 Time of Service: 14:06 Subjective Subjective Interval history since last seen: Patient presented to the center for second dose of betamethasone for lung maturity and neuro protection due to the fact that she is more than likely going to be delivering earlier and has abnormal surveillance. She will be seen at [facility] tomorrow for further recommendations and therapy.
== END 2020-11-26 10:30 | disposition home or self-care (01) ==
LOC: BCD 10:15 → OBS 10:18
PROVIDERS: PCP Nurse Practitioner Adult Health; Visit Provider Obstetrics & Gynecology
DX: O28.8 Other abnormal findings on antenatal screening of mother (principal)
CPT/HCPCS: 96372; 99231; J0702

== ENCOUNTER 2021-03-17 16:35 | Outpatient (REF) | payer MEDICAID, SELFPAY ==
[2021-03-19 13:17] LABS: COVID-19 RT-PCR UVMMC Result Negative (Negative)
== END 2021-03-17 16:36 | disposition home or self-care (01) ==
LOC: LBN 16:35
PROVIDERS: PCP Nurse Practitioner Adult Health; Visit Provider Nurse Practitioner Family
DX: Z20.822 Contact with and (suspected) exposure to COVID-19 (principal); J06.9 Acute upper respiratory infection, unspecified
CPT/HCPCS: U0003

== ENCOUNTER 2021-09-09 12:37 | Emergency (ER) | payer MEDICAID, SELFPAY ==
[2021-09-09 12:46] VITALS: BP 130/71; PULSE 61; RESP 16; TEMP 36.4; O2SAT 99
--- NOTE | 2021-09-09 13:22 | W.ED.FU ---
Patient left ED prior to my evaluation. Nursing staff noted that patient stated she was feeling better, MARTINEZ resolved and she left.
== END 2021-09-09 13:17 ==
PROVIDERS: Emergency Provider Student in an Organized Health Care Education/Training Program; PCP Nurse Practitioner Adult Health
DX: Z53.21 Procedure and treatment not carried out due to patient leaving prior to being seen by health care provider (principal)